=== PATIENT | female | born 1965 | race African-American/Black ===

== ENCOUNTER 2019-04-30 06:50 | Day surgery (SDC) | payer OTHER ==
[~2019-04-30] VITALS: Ht 162.6 cm; Wt 124.3 kg
[~2019-04-30 06:50] MED LIST: ALPR1TAB2 PO; AMLO5TAB88 PO; CARI250T PO; CETI10TA6 PO; HYDR-4001 PO; LACTATED RINGERS 1,000 ML IV SCH
[2019-04-30 07:42] LABS: UCG SCREEN NEGATIVE
[2019-04-30] MEDS ORDERED: VASOPRESSIN 20 UNIT/ML 1ML ONE ×2 (08:51→08:53)
[2019-04-30] MEDS ORDERED: HYDROCODONE/ACETAMINOPHEN 5/325MG TABLET PO PRN ×2 (11:00)
[2019-04-30] MEDS ORDERED: MORPHINE SULFATE 2 MG/ML CPJ (NOT FOR IM USE) IV PRN (11:00)
[2019-04-30] MEDS ORDERED: HYDROMORPHONE HCL/PF 2MG/ML CPJ IV PRN (11:15)
[2019-04-30 11:49] VITALS: BP 139/84
== END 2019-04-30 12:15 | disposition home or self-care (01) ==
LOC: OR 06:50
PROVIDERS: ATTEND Obstetrics & Gynecology
DX: D25.0 Submucous leiomyoma of uterus (principal); N84.1 Polyp of cervix uteri; I10 Essential (primary) hypertension; K21.9 Gastro-esophageal reflux disease without esophagitis; E66.01 Morbid (severe) obesity due to excess calories; N92.0 Excessive and frequent menstruation with regular cycle; D50.9 Iron deficiency anemia, unspecified; Z79.899 Other long term (current) drug therapy
CPT/HCPCS: 36415; 58561; 81025; 86850; 86900; 86901; 88305; J3490